=== PATIENT | male | born 1985 | race Asian ===

== ENCOUNTER 2020-07-21 01:54 | Inpatient (IN) | payer OTHER ==
[~2020-07-21] VITALS: Ht 172.7 cm; Wt 67.1 kg
--- NOTE | 2020-07-21 02:01 | NUR ---
PT AAOX4. BIBSELF C/O NONRADIATING MIDSTERNAL CHEST PAIN SINCE WEDNESDAY. PLACED ON MONITOR AND PULSE OX. VSS. NO ACUTE DISTRESS NOTED. AWAITING MD FOR EVAL AND ORDERS.
[2020-07-21 02:48] LABS: BASOPHILS % (AUTO) 0.4 % (0.0-2.0); EOSINOPHILS % (AUTO) 5.6 % (0.0-6.0); HEMATOCRIT 45 % (39-51); HEMOGLOBIN 15.2 g/dL (13.5-17.5); LYMPHOCYTES # (AUTO) 2.4 /CMM (0.8-4.8); LYMPHOCYTES % (AUTO) 33.8 % (20.0-44.0); MEAN CORPUSCULAR HGB CONC 34 g/dl (31.0-36.0); MEAN CORPUSCULAR VOLUME 87 fL (80-96); MONOCYTES # (AUTO) 0.6 /CMM (0.1-1.30); MONOCYTES % (AUTO) 8.3 % (2.0-12.0); NEUTROPHILS # (AUTO) 3.7 /CMM (1.8-8.9); NEUTROPHILS % (AUTO) 51.9 % (43.0-81.0); PLATELET COUNT (AUTO) 231 /CMM (150-450); RED BLOOD CELL COUNT(AUTO) 5.18 MIL/uL (4.5-6.0); WHITE BLOOD COUNT (AUTO) 7.1 K/uL (4.3-11.0)
--- NOTE | 2020-07-21 02:49 | NUR ---
XRAY AT BEDSIDE
[2020-07-21 02:56] LABS: CALCIUM, SERUM 8.2 mg/dL (8.5-10.1); CREATININE 1.3 mg/dL (0.6-1.3); POTASSIUM 3.7 mmol/L (3.5-5.1)
--- NOTE | 2020-07-21 04:09 | NUR ---
SPOKE TO PT REGARDING TROP LEVELS. UPDATED HIM REGARDING REDRAW IN A COUPLE OF HRS. PT AWARE OF PLAN OF CARE, VSS.
--- NOTE | 2020-07-21 05:24 | NUR ---
KENO WRITER / RUNNER AT BEDSIDE FOR REPEAT TROP
--- NOTE | 2020-07-21 06:09 | NUR ---
DR. MCFARLAND SPEAKING WITH CIRCUIT JUDGE FURNACE UTILITY OPERATOR, DR. KAY
[2020-07-21] MEDS ORDERED: ENOXAPARIN SODIUM 60 MG/0.6 ML DISP.SYRIN SQ ONE ×2 (06:27→06:30)
--- NOTE | 2020-07-21 06:35 | NUR ---
ROMERO SENT TO LAB
--- NOTE | 2020-07-21 06:35 | NUR ---
PT RESTING COMFORTABLY. VSS.
--- NOTE | 2020-07-21 06:55 | NUR ---
CALLED LAB REGARDING COVID. IN PROG.
--- NOTE | 2020-07-21 07:17 | NUR ---
PT DENIES CP, AWARE OF ADMISSION.
--- NOTE | 2020-07-21 07:35 | NUR ---
CALL [facility]SE [facility] FOR TELEBED.
[2020-07-21] MEDS ORDERED: LIDOCAINE HCL/MPF 1% 30 ML VIAL IJ ONE (08:21)
--- NOTE | 2020-07-21 08:21 | NUR ---
REPORT GIVEN TO RACHEAL ROWLAND FOR JEANCARLOS.
--- NOTE | 2020-07-21 08:45 | NUR ---
PATIENT TRANSFERRED TO ROOM 315-2 VIA ACLS PROTOCOL. PATIENT A/OX4, AMBULATORY WITH STEADY GAIT. NEEDS ATTENDED. ENDORSED TO RACHEAL ROWLAND.
[2020-07-21 08:49] VITALS: BP 135/79
--- NOTE | 2020-07-21 08:50 | NUR ---
Received patient awake alert and oriented x4 , in stable condition, on room air saturation 100%. VS are taken and within baseline, afebrile. LAC 18g flushing well, no s/s infiltration. Patient denies chest pain at this time or any other discomfort. Patient scheduled for CT angio of the heart today. Gait is steady. Patient has no skin issues. Will continue to monitor
[2020-07-21 09:24] LABS: MAGNESIUM 2.4 mg/dL (1.8-2.4); PHOSPHORUS 2.5 mg/dL (2.5-4.9)
[2020-07-21] MEDS: ASPIRIN 81 MG TAB.CHEW PO SCH (09:25)
[2020-07-21] MEDS: ATORVASTATIN 10 MG TABLET PO SCH (09:25)
[2020-07-21] MEDS ORDERED: IOHEXOL-350 100 ML VIAL IV ONE (09:40)
[2020-07-21] MEDS ORDERED: IV NS 0.9% 250 ML IV ONE (09:40)
[2020-07-21] MEDS ORDERED: NITROGLYCERIN 0.4 MG/TAB BOTTLE ONE (10:00)
[2020-07-21] MEDS ORDERED: METOPROLOL TARTRATE INJ 5 MG/5 ML AMPUL ONE ×2 (10:01→10:31)
[2020-07-21] MEDS: METOPROLOL TARTRATE INJ 5 MG/5 ML AMPUL IVP PRN ×4 (10:11→10:31)
[2020-07-21] MEDS ORDERED: NITROGLYCERIN 0.4 MG/TAB BOTTLE SL ONE (10:30)
[2020-07-21 10:52] LABS: THYROID STIMULATING HORMONE 0.874 uIU/mL (0.358-3.74)
--- NOTE | 2020-07-21 10:59 | NUR ---
Report given to JANETT Roman for JEANCARLOS.
--- NOTE | 2020-07-21 11:00 | NUR ---
Patient transported back to [place] [id number] via wheelchair in stable condition.
--- NOTE | 2020-07-21 12:10 | NUR ---
Patient is willing to leave.Angiogram results sent to
--- NOTE | 2020-07-21 12:20 | NUR ---
Per dr. Hawkins pt can be d/c if Troponin level goes down
[2020-07-21] MEDS: METOPROLOL TARTRATE 50 MG TABLET PO SCH ×2 (13:09→17:21)
--- NOTE | 2020-07-21 13:26 | NUR ---
Troponin level is 3.195. Dr. Hawkins notified and per dr. Hawkins not safe to discharge today.
[2020-07-21 16:00] VITALS: BP 136/89
--- NOTE | 2020-07-21 17:10 | NUR ---
Patient seen by dr. Valdez.
--- NOTE | 2020-07-21 18:50 | NUR ---
Patient is resting in bed , in stable condition . On tele monitor NSR HR 68 . No chest pain or other discomfort reported by patient. IV asses intact and patent, flushing well. Patient on room air , saturation 97%-100%. All needs attended. Will endorse to shift leader nurse for JEANCARLOS.
--- NOTE | 2020-07-21 19:15 | NUR ---
RN PM OPENING NOTE BEDSIDE REPORT RECIEVED FROM RACHEAL ROWLAND. PT IN BED IN NO APPARENT DISTRESS. PT DENIES CP. ON TELE MONITOR HR IS 55. IV ASSESSED FLUSHED INTACT AND PATENT. ON RA PT INDEPENDENT VERBALIZED UNDERSTANDING TO CALL FOR ASSISTANCE IF NEEDED. WILL CONT TO MONITOR.
[2020-07-21 20:28] VITALS: BP 133/90
[2020-07-22 00:08] VITALS: BP 129/80
[2020-07-22] MEDS: METOPROLOL TARTRATE 50 MG TABLET PO SCH ×3 (00:43→05:08)
[2020-07-22 04:17] VITALS: BP 144/78
--- NOTE | 2020-07-22 05:04 | NUR ---
METOPROLOL HELD; HR FLUCTUATING BETWEEN 45 AND 55 OVER 1 MINUTE. PARAMATER IS TO HOLD IF HR IS BELOW 50. MEDICATION HELD.
--- NOTE | 2020-07-22 05:12 | NUR ---
LOVENOX ORDER NEEDS MD CLARIFICATION LOVENOX ORDERED PER PHARMACY TO DOSE PER WT, NO DOSE SCHEDULED PER MD NOTES LOVENOX IS SUPPOSED TO BE FOR DVT PROPHYLAXIS. ORDER NEEDS TO BE CLARIFIED BY MD.
--- NOTE | 2020-07-22 06:50 | NUR ---
RN PM CLOSING NOTE PT IN ROOM IN NO APPARENT DISTRESS. DENIES CP. DENIES SOB. BED DOWN LOCKED SRX2 PT AMBULATING INDEPENDENTLY. CALL LIGHT IN REACH. METOPROLOL HELD THIS MORNING FOR HR LESS THEN 50. ON TELE PT HR CURRENTLY 54. WILL ENDORSE TO ONCOMING SHIFT.
[2020-07-22 07:16] LABS: BASOPHILS % (AUTO) 0.1 % (0.0-2.0); HEMATOCRIT 46 % (39-51); HEMOGLOBIN 15.1 g/dL (13.5-17.5); LYMPHOCYTES # (AUTO) 1.7 /CMM (0.8-4.8); LYMPHOCYTES % (AUTO) 23.2 % (20.0-44.0); MEAN CORPUSCULAR HGB CONC 33 g/dl (31.0-36.0); MEAN CORPUSCULAR VOLUME 88 fL (80-96); MONOCYTES # (AUTO) 0.7 /CMM (0.1-1.30); MONOCYTES % (AUTO) 10.1 % (2.0-12.0); NEUTROPHILS # (AUTO) 4.5 /CMM (1.8-8.9); NEUTROPHILS % (AUTO) 61.6 % (43.0-81.0); PLATELET COUNT (AUTO) 240 /CMM (150-450); RED BLOOD CELL COUNT(AUTO) 5.23 MIL/uL (4.5-6.0); WHITE BLOOD COUNT (AUTO) 7.3 K/uL (4.3-11.0)
[2020-07-22 08:00] VITALS: BP 149/88
--- NOTE | 2020-07-22 08:13 | NUR ---
TELE/RN NOTE THE PATIENT IS RECEIVED IN BED. THE PATIENT IS ALERT AND ORIENTED X4. IN ROOM AIR AND DENIES SOB. RESPIRATION REGULAR AND UNLABORED. THE PATIENT IN NO APPARENT DISTRESS. EXTERNAL TELE BOX READING IS SR 61. LAC G 18 PATENT AND SALINE LOCKED. BED LOW AND LOCKED. SIDE RAILS UP X3. CALL LIGHT WITHIN REACH. WILL CONTINUE TO MONITOR.
[2020-07-22 08:25] LABS: ALBUMIN 3.7 g/dL (3.4-5.0); BILIRUBIN,TOTAL 0.5 mg/dL (0.2-1.0); CALCIUM, SERUM 8.8 mg/dL (8.5-10.1); CREATININE 1.1 mg/dL (0.6-1.3); MAGNESIUM 2.3 mg/dL (1.8-2.4); PHOSPHORUS 2.6 mg/dL (2.5-4.9); POTASSIUM 4.3 mmol/L (3.5-5.1); TOTAL PROTEIN, SERUM 7.6 g/dL (6.4-8.2)
[2020-07-22] MEDS: ATORVASTATIN 10 MG TABLET PO SCH (08:34)
[2020-07-22] MEDS: ASPIRIN 81 MG TAB.CHEW PO SCH (08:34)
[2020-07-22] MEDS ORDERED: ASPI-1420 PO (08:57)
[2020-07-22] MEDS ORDERED: METOPROLOL TARTRATE 50 MG TABLET PO SCH (09:00)
[2020-07-22] MEDS ORDERED: AMLODIPINE BESYLATE 5 MG TABLET PO SCH (09:00)
--- NOTE | 2020-07-22 09:23 | NUR ---
TELE/RN NOTE DR CASIANO IS MADE AWARE OF TROPONIN LEVEL OF 1.463. PER MD NO NEW ORDERS.
--- NOTE | 2020-07-22 10:01 | NUR ---
TELE/RN NOTE DR CASIANO IS MADE AWARE OF CK RESULT OF 187. PER MD OK TO DISCHARGE THE PATIENT TO HOME.
[2020-07-22 10:21] VITALS: BP 125/74
--- NOTE | 2020-07-22 11:19 | NUR ---
TELE/RN NOTE THE PATIENT IS ALERT AND ORIENTED X4. DENIES PAIN. RESPIRATION IS REGULAR AND UNLABORED. OXYGEN IN ROOM AIR AND SATURATION IS AT 98%. DENIES SOB. THE PATIENT IS IN NO APPARENT DISTRESS. DISCHARGE EDUCATION PROVIDED AND THE PATIENT VERBALIZED UNDERSTANDING. THE PATIENT LEFT THE HOSPITAL IN STABLE CONDITION.
== END 2020-07-22 11:10 | disposition home or self-care (01) | DRG 206 ==
LOC: ER 01:58 → TELE 08:12
PROVIDERS: ADMIT Internal Medicine; ATTEND Internal Medicine
DX: M94.0 Chondrocostal junction syndrome [Tietze] (principal); I31.9 Disease of pericardium, unspecified; R73.9 Hyperglycemia, unspecified
CPT/HCPCS: 36415; 71045-TC; 75574; 80048-TC; 80053-TC; 80061-TC; 82550-TC; 83735-TC; 84100-TC; 84443-TC; 84484-TC; 85025-TC; 85378-TC; 85652-TC; 87081-TC; 93307-TC; C9803-CS; G0378; J1650; J3490; J7050; Q9967